=== PATIENT | male | born 1955 | race Two or more races ===

== ENCOUNTER 2022-05-18 17:59 | Emergency (ER) | payer OTHER ==
[~2022-05-18] VITALS: Ht 170.2 cm; Wt 72.6 kg
[2022-05-18] MEDS ORDERED: NITROGLYCERIN OINT 1 GM PACKET TP ONE ×2 (18:45→18:58)
[2022-05-18] MEDS ORDERED: CLONIDINE HCL 0.1 MG TABLET PO ONE (18:45)
[2022-05-18] MEDS ORDERED: CLONIDINE HCL 0.1 MG TABLET ONE (18:58)
[2022-05-18 19:15] LABS: HEMATOCRIT 41.8 % (36.7-47.1); MEAN CORPUSCULAR HEMOGLOBIN 28.6 uug (23.8-33.4); MEAN CORPUSCULAR VOLUME 87.7 fL (73.0-96.2); PLATELET COUNT (AUTO) 434 K/uL (152-348)
--- NOTE | 2022-05-18 19:27 | NUR ---
Pt arrived with c/o sudden onset hbp, denies headache, n/v and dizziness. Pt has a hx of stroke. Seen by KALI for MSE.
--- NOTE | 2022-05-18 19:36 | NUR ---
Endorsed to Kiana CABRERA.
[2022-05-18 19:43] LABS: CARBON DIOXIDE 28 mmol/L (21-32); CHLORIDE 102 mmol/L (98-107); CREATININE 0.9 mg/dL (0.6-1.3); GLUCOSE 180 mg/dL (74-106); POTASSIUM 3.9 mmol/L (3.5-5.1); UREA NITROGEN, BLOOD 24 mg/dL (7-18)
[2022-05-18 19:56] LABS: ALANINE AMINOTRANSFERASE 106 U/L (16-63); ALKALINE PHOSPHATASE 81 U/L (50-136); ASPARTATE AMINOTRANSFERASE 40 U/L (15-37); BILIRUBIN,DIRECT 0.1 mg/dL (0.0-0.2); BILIRUBIN,TOTAL 0.4 mg/dL (0.2-1.0); TOTAL PROTEIN, SERUM 6.9 g/dL (6.4-8.2)
--- NOTE | 2022-05-18 20:26 | NUR ---
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 stable at this time.
[2022-05-18] MEDS ORDERED: CLON0.1T PO (22:05)
[2022-05-18 22:21] VITALS: BP 120/80
--- NOTE | 2022-05-18 22:21 | NUR ---
Patient discharged to home in stable condition. Written and verbal after care instructions given. Patient verbalizes understanding of instructions. Stressed follow up or return to ER for worsening s/s.
== END 2022-05-18 22:22 | disposition home or self-care (01) ==
LOC: ER 17:59
DX: I10 Essential (primary) hypertension (principal); Z79.899 Other long term (current) drug therapy
CPT/HCPCS: 36415; 71045; 84484; 85025; 93005; A4663

== ENCOUNTER 2022-09-03 12:12 | Emergency (ER) | payer OTHER ==
[~2022-09-03] VITALS: Ht 172.7 cm; Wt 70.3 kg
[~2022-09-03 12:12] MED LIST: CLON0.1T PO
[2022-09-03] MEDS ORDERED: ATOR40TA PO (12:37)
[2022-09-03] MEDS ORDERED: AMLO-212 PO (12:37)
[2022-09-03] MEDS ORDERED: AMOX-430 PO (12:37)
[2022-09-03] MEDS ORDERED: METO-356 PO (12:37)
[2022-09-03] MEDS ORDERED: CYCL5TAB PO (12:37)
[2022-09-03] MEDS ORDERED: METF-440 PO (12:37)
[2022-09-03] MEDS ORDERED: ASPI81TA31 PO (12:37)
--- NOTE | 2022-09-03 12:37 | NUR ---
Pt seen by MD for bedside Eval. Safety measures in place. Will continue to monitor.
[2022-09-03] MEDS ORDERED: KETOROLAC TROMETHAMINE 15 MG INJ ONE (12:42)
[2022-09-03] MEDS ORDERED: DEXAMETHASONE SOD PHOSPHATE 10 MG INJ ONE (12:42)
[2022-09-03] MEDS ORDERED: DEXAMETHASONE SOD PHOSPHATE 4 MG INJ IM ONE (12:45)
[2022-09-03] MEDS ORDERED: KETOROLAC TROMETHAMINE 15 MG INJ IM ONE (12:45)
[2022-09-03] MEDS ORDERED: LIDOCAINE 5% PATCH TD ONE ×2 (12:45→13:01)
[2022-09-03 13:36] VITALS: BP 149/81
== END 2022-09-03 13:37 | disposition home or self-care (01) ==
LOC: ER 12:12
DX: M54.2 Cervicalgia (principal); E11.9 Type 2 diabetes mellitus without complications; I10 Essential (primary) hypertension; I25.10 Atherosclerotic heart disease of native coronary artery without angina pectoris; Z79.82 Long term (current) use of aspirin; Z79.899 Other long term (current) drug therapy
CPT/HCPCS: 99285; 72125; 93005; 96372 ×2; J1100; J1885; A4663

== ENCOUNTER 2022-12-12 18:53 | Inpatient (IN) | payer OTHER ==
[~2022-12-12] VITALS: Ht 172.7 cm; Wt 68.0 kg
[~2022-12-12 18:53] MED LIST changes: +AMLO-212 PO; +AMOX-430 PO; +ASPI81TA31 PO; +ATOR40TA PO; +CYCL5TAB PO; +METF-440 PO; +METO-356 PO
[2022-12-12 20:12] LABS: BASOPHILS % (AUTO) 0.4 % (0.0-2.0); EOSINOPHILS # (AUTO) 0.1 K/uL (0.0-0.7); EOSINOPHILS % (AUTO) 0.8 % (0.0-7.0); LYMPHOCYTES # (AUTO) 1.7 K/uL (0.8-4.8); LYMPHOCYTES % (AUTO) 18.6 % (20.5-51.5); MEAN CORPUSCULAR HEMOGLOBIN 28.1 uug (23.8-33.4); MEAN CORPUSCULAR HGB CONC 33 g/dL (32.5-36.3); MEAN CORPUSCULAR VOLUME 84.3 fL (73.0-96.2); MONOCYTES # (AUTO) 0.7 K/uL (0.1-1.30); MONOCYTES % (AUTO) 7.5 % (0.0-11.0); NEUTROPHILS # (AUTO) 6.5 K/uL (1.8-8.9); NEUTROPHILS % (AUTO) 72.7 % (38.5-71.5); PLATELET COUNT (AUTO) 517 K/uL (152-348); RED CELL DISTRIBUTION WIDTH 15.2 % (12.1-16.2); WHITE BLOOD COUNT (AUTO) 8.9 K/uL (3.6-10.2)
[2022-12-12] MEDS ORDERED: PANTOPRAZOLE SODIUM IV 80 MG in IV DEXTROSE 5% 100 ML IV ONE (20:15)
[2022-12-12 20:19] LABS: RED BLOOD CELL COUNT(AUTO) 1.97 MIL/uL (4.06-5.63)
[2022-12-12] MEDS ORDERED: PANTOPRAZOLE SODIUM 40 MG VIAL ONE (20:19)
[2022-12-12 20:21] LABS: DIFFERENTIAL COMMENT 1; HEMATOCRIT 16.6 % (36.7-47.1); HEMOGLOBIN 5.5 g/dL (12.5-16.3)
[2022-12-12] MEDS ORDERED: LOSA25TA27 PO (20:23)
[2022-12-12] MEDS ORDERED: METO-357 PO (20:23)
[2022-12-12] MEDS ORDERED: METF-442 PO (20:23)
[2022-12-12 20:24] LABS: CALCIUM 8.8 mg/dL (8.5-10.1); CARBON DIOXIDE 25 mmol/L (21-32); CHLORIDE 105 mmol/L (98-107); CREATININE 0.9 mg/dL (0.6-1.3); GLUCOSE 134 mg/dL (74-106); POTASSIUM 4.4 mmol/L (3.5-5.1); SODIUM SERUM 138 mmol/L (136-145); UREA NITROGEN, BLOOD 19 mg/dL (7-18)
[2022-12-12 20:27] LABS: *OCCULT BLOOD STOOL POSITIVE (NEGATIVE)
[2022-12-12 20:39] LABS: ALANINE AMINOTRANSFERASE 48 U/L (16-63); ALBUMIN 3.3 g/dL (3.4-5.0); ALKALINE PHOSPHATASE 76 U/L (50-136); ASPARTATE AMINOTRANSFERASE 28 U/L (15-37); BILIRUBIN,DIRECT 0.1 mg/dL (0.0-0.2); BILIRUBIN,TOTAL 0.2 mg/dL (0.2-1.0); LIPASE 161 U/L (73-393); TOTAL PROTEIN, SERUM 6.6 g/dL (6.4-8.2)
[2022-12-12] MEDS ORDERED: MORPHINE SULFATE 2 MG/1 ML DISP.SYRIN IV PRN (22:00)
[2022-12-12] MEDS ORDERED: ONDANSETRON 4 MG/2 ML VIAL IV PRN (22:00)
[2022-12-12] MEDS ORDERED: ACETAMINOPHEN 650 MG SUPP.RECT RC PRN (22:00)
[2022-12-12] MEDS: PANTOPRAZOLE SODIUM 40 MG VIAL IV SCH (22:00)
[2022-12-12 22:26] LABS: IRON, SERUM 14 ug/dL (50-175)
[2022-12-13] VITALS (8 sets, daily range): BP systolic 113–140; BP diastolic 57–81; TEMP 97.6–98.8; O2SAT 99–100
[2022-12-13 06:31] LABS: BASOPHILS % (AUTO) 0.7 % (0.0-2.0); EOSINOPHILS # (AUTO) 0.1 K/uL (0.0-0.7); EOSINOPHILS % (AUTO) 1.7 % (0.0-7.0); HEMATOCRIT 22.5 % (36.7-47.1); HEMOGLOBIN 7.6 g/dL (12.5-16.3); LYMPHOCYTES # (AUTO) 1.2 K/uL (0.8-4.8); LYMPHOCYTES % (AUTO) 21.5 % (20.5-51.5); MEAN CORPUSCULAR HEMOGLOBIN 29.2 uug (23.8-33.4); MEAN CORPUSCULAR HGB CONC 34 g/dL (32.5-36.3); MEAN CORPUSCULAR VOLUME 85.8 fL (73.0-96.2); MONOCYTES # (AUTO) 0.5 K/uL (0.1-1.30); MONOCYTES % (AUTO) 9.1 % (0.0-11.0); NEUTROPHILS # (AUTO) 3.6 K/uL (1.8-8.9); PLATELET COUNT (AUTO) 369 K/uL (152-348); RED BLOOD CELL COUNT(AUTO) 2.62 MIL/uL (4.06-5.63); RED CELL DISTRIBUTION WIDTH 15.1 % (12.1-16.2); WHITE BLOOD COUNT (AUTO) 5.4 K/uL (3.6-10.2)
[2022-12-13 06:50] LABS: DIFFERENTIAL COMMENT 1
[2022-12-13 07:03] LABS: THYROID STIMULATING HORMONE 3.128 mIU/mL (0.358-3.740)
[2022-12-13 07:21] LABS: ALBUMIN 2.9 g/dL (3.4-5.0); BILIRUBIN,TOTAL 0.3 mg/dL (0.2-1.0); CALCIUM 8.2 mg/dL (8.5-10.1); CREATININE 0.8 mg/dL (0.6-1.3); MAGNESIUM 1.8 mg/dL (1.8-2.4); PHOSPHOROUS 4.4 mg/dL (2.5-4.9); POTASSIUM 4.4 mmol/L (3.5-5.1); TOTAL PROTEIN, SERUM 5.7 g/dL (6.4-8.2)
[2022-12-13] MEDS: PANTOPRAZOLE SODIUM 40 MG VIAL IV SCH ×2 (09:29→21:23)
[2022-12-13] MEDS: IV D5/ 0.9% NACL 1,000 ML IV PRN (11:03)
[2022-12-14 00:07] VITALS: BP 117/60; TEMP 98; O2SAT 99
[2022-12-14 04:00] VITALS: BP 126/68; TEMP 98.2; O2SAT 99
[2022-12-14] MEDS: IV D5/ 0.9% NACL 1,000 ML IV PRN (06:00)
[2022-12-14 06:45] LABS: BASOPHILS % (AUTO) 0.7 % (0.0-2.0); EOSINOPHILS # (AUTO) 0.1 K/uL (0.0-0.7); EOSINOPHILS % (AUTO) 2.4 % (0.0-7.0); HEMATOCRIT 23.1 % (36.7-47.1); HEMOGLOBIN 7.8 g/dL (12.5-16.3); LYMPHOCYTES # (AUTO) 1.3 K/uL (0.8-4.8); LYMPHOCYTES % (AUTO) 22.2 % (20.5-51.5); MEAN CORPUSCULAR HGB CONC 34 g/dL (32.5-36.3); MEAN CORPUSCULAR VOLUME 85.8 fL (73.0-96.2); MONOCYTES # (AUTO) 0.5 K/uL (0.1-1.30); MONOCYTES % (AUTO) 8.6 % (0.0-11.0); NEUTROPHILS # (AUTO) 3.9 K/uL (1.8-8.9); NEUTROPHILS % (AUTO) 66.1 % (38.5-71.5); PLATELET COUNT (AUTO) 424 K/uL (152-348); RED BLOOD CELL COUNT(AUTO) 2.69 MIL/uL (4.06-5.63); RED CELL DISTRIBUTION WIDTH 14.9 % (12.1-16.2); WHITE BLOOD COUNT (AUTO) 5.9 K/uL (3.6-10.2)
[2022-12-14 06:59] LABS: DIFFERENTIAL COMMENT 1
[2022-12-14 07:00] LABS: CALCIUM 7.9 mg/dL (8.5-10.1); CREATININE 0.8 mg/dL (0.6-1.3); MAGNESIUM 1.8 mg/dL (1.8-2.4); PHOSPHOROUS 4.7 mg/dL (2.5-4.9); POTASSIUM 4.3 mmol/L (3.5-5.1)
[2022-12-14] MEDS: PANTOPRAZOLE SODIUM 40 MG VIAL IV SCH (09:17)
[2022-12-14] MEDS ORDERED: PANT40TA2 PO (10:41)
[2022-12-14 11:23] VITALS: BP 113/63; TEMP 98; O2SAT 98
== END 2022-12-14 13:20 | disposition home or self-care (01) | DRG 377 ==
LOC: ER 19:03 → TELE3 12-13 00:15
PROVIDERS: ADMIT Nurse Practitioner Acute Care; ATTEND Nurse Practitioner Acute Care
PROC: 30233N1 Transfusion of Nonautologous Red Blood Cells into Peripheral Vein, Percutaneous Approach (ICD-10-PCS; 2022-12-12)
PROC: 0DB68ZX Excision of Stomach, Via Natural or Artificial Opening Endoscopic, Diagnostic (ICD-10-PCS; principal; 2022-12-13)
DX: K25.4 Chronic or unspecified gastric ulcer with hemorrhage (principal); I21.A1 Myocardial infarction type 2; D62 Acute posthemorrhagic anemia; E11.9 Type 2 diabetes mellitus without complications; E78.5 Hyperlipidemia, unspecified; G89.29 Other chronic pain; I10 Essential (primary) hypertension; I25.10 Atherosclerotic heart disease of native coronary artery without angina pectoris; I25.2 Old myocardial infarction; K29.70 Gastritis, unspecified, without bleeding; Z79.84 Long term (current) use of oral hypoglycemic drugs; Z95.5 Presence of coronary angioplasty implant and graft; Z79.82 Long term (current) use of aspirin; M19.019 Primary osteoarthritis, unspecified shoulder
CPT/HCPCS: 36415; 71045; 83550; 83605; 83690; 83735; 84100; 84443; 84484; 85025; 85610; 85730; 86850; 86900; 86901; 86920; 93307; A4663; C9113; G0378; J7040; J7042; P9016

== ENCOUNTER 2023-01-30 15:39 | Inpatient (IN) | payer OTHER ==
[~2023-01-30] VITALS: Ht 172.7 cm; Wt 68.9 kg
[~2023-01-30 15:39] MED LIST changes: -AMLO-212 PO; -AMOX-430 PO; -CLON0.1T PO; -CYCL5TAB PO; +LOSA25TA27 PO; -METF-440 PO; +METF-442 PO; -METO-356 PO; +METO-357 PO; +PANT40TA2 PO
[2023-01-30] MEDS ORDERED: PANTOPRAZOLE SODIUM 40 MG VIAL IV ONE (16:00)
[2023-01-30] MEDS ORDERED: PANTOPRAZOLE SODIUM 40 MG VIAL ONE (16:11)
[2023-01-30 16:35] LABS: BASOPHILS % (AUTO) 0.8 % (0.0-2.0); EOSINOPHILS # (AUTO) 0.1 K/uL (0.0-0.7); EOSINOPHILS % (AUTO) 2.2 % (0.0-7.0); LYMPHOCYTES # (AUTO) 1.2 K/uL (0.8-4.8); LYMPHOCYTES % (AUTO) 21.8 % (20.5-51.5); MEAN CORPUSCULAR HEMOGLOBIN 22.6 uug (23.8-33.4); MEAN CORPUSCULAR HGB CONC 32 g/dL (32.5-36.3); MEAN CORPUSCULAR VOLUME 70.4 fL (73.0-96.2); MONOCYTES # (AUTO) 0.5 K/uL (0.1-1.30); MONOCYTES % (AUTO) 9.8 % (0.0-11.0); NEUTROPHILS # (AUTO) 3.7 K/uL (1.8-8.9); NEUTROPHILS % (AUTO) 65.4 % (38.5-71.5); PLATELET COUNT (AUTO) 382 K/uL (152-348); RED BLOOD CELL COUNT(AUTO) 2.97 MIL/uL (4.06-5.63); RED CELL DISTRIBUTION WIDTH 25.4 % (12.1-16.2); WHITE BLOOD COUNT (AUTO) 5.6 K/uL (3.6-10.2)
[2023-01-30 16:36] LABS: DIFFERENTIAL COMMENT 1; HEMATOCRIT 20.9 % (36.7-47.1); HEMOGLOBIN 6.7 g/dL (12.5-16.3)
[2023-01-30 16:57] LABS: ALBUMIN 3.5 g/dL (3.4-5.0); BILIRUBIN,DIRECT 0.1 mg/dL (0.0-0.2); BILIRUBIN,TOTAL 0.2 mg/dL (0.2-1.0); CALCIUM 8.7 mg/dL (8.5-10.1); CREATININE 0.8 mg/dL (0.6-1.3); POTASSIUM 3.8 mmol/L (3.5-5.1); TOTAL PROTEIN, SERUM 6.7 g/dL (6.4-8.2)
[2023-01-30] MEDS ORDERED: INSULIN REGULAR, HUMAN 300 UNIT/3 ML VIAL SQ PRN (18:30)
[2023-01-30] MEDS ORDERED: hydrALAZINE HCL 20 MG/1 ML VIAL IV PRN (18:30)
[2023-01-30] MEDS ORDERED: ONDANSETRON 4 MG/2 ML VIAL IV PRN (18:30)
[2023-01-30] MEDS ORDERED: ACETAMINOPHEN 325 MG TABLET PO PRN (18:30)
[2023-01-30] MEDS ORDERED: MORPHINE SULFATE 2 MG/1 ML DISP.SYRIN IVP PRN (18:30)
[2023-01-30] MEDS ORDERED: DEXTROSE 50% 50 ML DISP.SYRIN IV PRN (18:30)
[2023-01-30 22:23] VITALS: BP 139/59; TEMP 98.4; O2SAT 98
[2023-01-30] MEDS: PANTOPRAZOLE SODIUM 40 MG VIAL IV SCH (22:40)
[2023-01-30] MEDS: BLOOD SUGAR DIAGNOSTIC 1 EACH STRIP VI SCH (22:44)
[2023-01-30 23:29] VITALS: BP 121/59; TEMP 98.2
[2023-01-30 23:46] VITALS: BP 121/59; TEMP 98.2; O2SAT 97
[2023-01-31] VITALS (7 sets, daily range): BP systolic 117–153; BP diastolic 53–74; TEMP 98–98.5; O2SAT 98–99
[2023-01-31] MEDS: BLOOD SUGAR DIAGNOSTIC 1 EACH STRIP VI SCH ×2 (06:45→11:49)
[2023-01-31 07:23] LABS: BASOPHILS % (AUTO) 0.7 % (0.0-2.0); EOSINOPHILS # (AUTO) 0.2 K/uL (0.0-0.7); EOSINOPHILS % (AUTO) 3.8 % (0.0-7.0); HEMATOCRIT 26.1 % (36.7-47.1); HEMOGLOBIN 8.6 g/dL (12.5-16.3); LYMPHOCYTES % (AUTO) 21.6 % (20.5-51.5); MEAN CORPUSCULAR HEMOGLOBIN 23.1 uug (23.8-33.4); MEAN CORPUSCULAR HGB CONC 33 g/dL (32.5-36.3); MONOCYTES # (AUTO) 0.5 K/uL (0.1-1.30); MONOCYTES % (AUTO) 10.1 % (0.0-11.0); NEUTROPHILS % (AUTO) 63.8 % (38.5-71.5); PLATELET COUNT (AUTO) 415 K/uL (152-348); RED BLOOD CELL COUNT(AUTO) 3.73 MIL/uL (4.06-5.63); RED CELL DISTRIBUTION WIDTH 24.2 % (12.1-16.2); WHITE BLOOD COUNT (AUTO) 4.7 K/uL (3.6-10.2)
[2023-01-31 07:24] LABS: DIFFERENTIAL COMMENT 1
[2023-01-31 08:01] LABS: ALBUMIN 3.4 g/dL (3.4-5.0); BILIRUBIN,TOTAL 0.7 mg/dL (0.2-1.0); CALCIUM 9.4 mg/dL (8.5-10.1); CREATININE 0.8 mg/dL (0.6-1.3); PHOSPHOROUS 4.1 mg/dL (2.5-4.9); POTASSIUM 3.9 mmol/L (3.5-5.1); TOTAL PROTEIN, SERUM 6.5 g/dL (6.4-8.2)
[2023-01-31] MEDS: PANTOPRAZOLE SODIUM 40 MG VIAL IV SCH (08:29)
[2023-01-31] MEDS ORDERED: METOPROLOL SUCCINATE XL 50 MG TAB.SR.24H PO SCH (09:00)
[2023-01-31] MEDS ORDERED: LOSARTAN POTASSIUM 25 MG TABLET PO SCH (09:00)
[2023-01-31] MEDS ORDERED: ASPIRIN 81 MG TAB.CHEW PO SCH (09:00)
[2023-01-31] MEDS ORDERED: PANTOPRAZOLE SODIUM 40 MG TABLET.DR PO SCH (09:00)
[2023-01-31] MEDS ORDERED: ATOR10TA PO (14:16)
[2023-01-31 16:09] LABS: HEMATOCRIT 26.6 % (36.7-47.1); HEMOGLOBIN 8.7 g/dL (12.5-16.3)
[2023-01-31] MEDS ORDERED: ATORVASTATIN 40 MG TABLET PO SCH (18:00)
== END 2023-01-31 16:30 | disposition home or self-care (01) | DRG 378 ==
LOC: ER 15:39 → TELE3 18:00
PROVIDERS: ADMIT Internal Medicine; ATTEND Internal Medicine
PROC: 30233N1 Transfusion of Nonautologous Red Blood Cells into Peripheral Vein, Percutaneous Approach (ICD-10-PCS; principal; 2023-01-30)
DX: K27.4 Chronic or unspecified peptic ulcer, site unspecified, with hemorrhage (principal); D62 Acute posthemorrhagic anemia; D75.839 Thrombocytosis, unspecified; E78.5 Hyperlipidemia, unspecified; I25.10 Atherosclerotic heart disease of native coronary artery without angina pectoris; Z79.84 Long term (current) use of oral hypoglycemic drugs; I10 Essential (primary) hypertension; E11.9 Type 2 diabetes mellitus without complications; Z79.82 Long term (current) use of aspirin; Z95.5 Presence of coronary angioplasty implant and graft; M19.90 Unspecified osteoarthritis, unspecified site; T39.395A Adverse effect of other nonsteroidal anti-inflammatory drugs [NSAID], initial encounter; Y92.009 Unspecified place in unspecified non-institutional (private) residence as the place of occurrence of the external cause
CPT/HCPCS: 36415; 71045; 83550; 83690; 84100; 85018; 85025; 85730; 86850; 86900; 86901; 86920; C9113; G0378; J1815; P9016